=== PATIENT | male | born 1995 | race Caucasian/White ===

== ENCOUNTER 2021-04-17 12:19 | Emergency (ER) | payer MEDICAID ==
[2021-04-17 12:27] VITALS: BP 150/84
[2021-04-17] MEDS ORDERED: BUPIVACAINE 0.5% PF 10 ML VIAL SUBQ STA (12:42)
[2021-04-17] MEDS ORDERED: LIDOCAINE 1%-EPI 1:100000 20 ML MDV SUBQ STA (12:42)
--- NOTE | 2021-04-17 12:43 | ED Physician Documentation ---
PD HPI UPPER EXT INJURY - Stated complaint Stated Complaint: LT HAND LAC - Chief complaint Chief Complaint: Laceration - History obtained from History obtained from: Patient (Right-handed gentleman who is up-to-date on tetanus cut his left first webspace of his hand with a piece of slate rock that broke in his hand while helping a friend just prior to arrival.) Review of Systems Constitutional: reports: Reviewed and negative Eyes: reports: Reviewed and negative Ears: reports: Reviewed and negative Nose: reports: Reviewed and negative Throat: reports: Reviewed and negative Cardiac: reports: Reviewed and negative PD PAST MEDICAL HISTORY - Past Surgical History Past Surgical History: No - Present Medications Home Medications: Ambulatory Orders Medication Instructions Recorded Confirmed HYDROcod/ACETAM 5/325 [[place] 5/325] 1 - 2 tab PO Q6H PRN #10 tablet 04/17/21 - Allergies Allergies/Adverse Reactions: Allergies Allergy/AdvReac Type Severity Reaction Status Date / Time No Known Drug Allergies Allergy Verified 04/17/21 12:23 - Social History Does the pt smoke?: No Smoking Status: Never smoker Does the pt drink ETOH?: No Does the pt have substance abuse?: No - Immunizations Immunizations are current?: Yes - POLST Patient has POLST: No PD ED PE NORMAL - Vitals Vital signs reviewed: Yes - General General: Alert and oriented X 3, No acute distress - Extremities Extremities: Other (Is a 2 cm laceration deep in the webspace of the left hand with normal distal neurovascular function of the first and second digits. Tendon function will be assessed after anesthetic.) - Neuro Neuro: Alert and oriented X 3, Normal speech Results - Vitals Vitals: Vital Signs - 24 hr 04/17/21 12:24 Temperature 36.5 C Heart Rate 88 Respiratory 16 Rate Blood Pressure 150/84 H O2 Saturation 98 Oxygen O2 Source Room air Procedures - Laceration (location) L hand Length in cm: 3 Wound type: Linear, Into subcut fat Neurovascular status: Sensory intact, Motor intact, Vascular intact Tendon involvement: Tendon intact Anesthesia: Other (Both radial and median nerve a nerve blocks were done with a one-to-one mixture of 0.5% bupivacaine and 1% lidocaine with epinephrine with excellent anesthesia.) Wound preparation: Irrigated copiously NS, FB identified (small bits of slate rock), FB removed Skin layer closure: Nylon, Interrupted, Size #-0 - enter number (4-0), Sutures - enter # (6) Other: Patient tolerated well (Although he did get quite vagal during the procedure with nausea and sweatiness but did not syncopize), Tetanus UTD Departure - Departure Disposition: 01 Home, Self Care Clinical Impression: Laceration of left hand Qualifiers: Encounter type: initial encounter Foreign body presence: without foreign body Qualified Code(s): S61.412A - Laceration without foreign body of left hand, initial encounter Condition: Good Instructions: ED Laceration Hand Prescriptions: HYDROcod/ACETAM 5/325 [[place] 5/325] 1 - 2 tab PO Q6H PRN #10 tablet PRN Reason: Pain Comments: I sent your prescription electronically to [facility] in [place]. Come back for any signs of infection which would include: Redness, swelling, drainage, increased pain, or fevers. You can wash it soap and water. Keep it covered and moist with bacitracin ointment which is available over the counter; avoid neosporin. Follow-up with your physician in About 14 days for suture removal. I am prescribing a short course of narcotic pain medication for you. These are potentially dangerous and addictive medications that should be used carefully. These medications may constipate you. Take an uaka-jqa-sypegrl stool softener (docusate) twice daily with plenty of water while taking these medications. If you go 24 hours without a bowel movement, take [id number]-[id number] miralax, per package instructions. Do not drink or drive while taking these medications. If you received narcotic or sedating medications while in the emergency department, do not drive for 24 hours. Store this medication in a safe, secure place and out of reach of children. It is a violation of federal law to give or sell this medication to another person or to use in a manner other than prescribed. The ED will not refill narcotic prescriptions, including prescriptions lost or stolen. To dispose of unwanted medications: 1. [facility] [address] in [place] has a medication drop box. They accept prescription medications (in pill form) Saturday through Saturday 9:00 a.m. to 5:00 p.m. 2. The [facility] [employer] accepts prescription medications (in pill form only) for disposal year round. Call for more information. 3. Contact the [facility] for the next [facility] sponsored prescription drug collection event. , [phone], or [phone]; Note that many narcotic pain relievers also contain Tylenol/acetaminophen. Please ensure that your total dose of acetaminophen from all sources does not exceed 3 g (3000 mg) per day.
== END 2021-04-17 13:31 | disposition home or self-care (01) ==
LOC: ED 12:19
DX: S61.412A Laceration without foreign body of left hand, initial encounter (principal); W26.8XXA Contact with other sharp object(s), not elsewhere classified, initial encounter
CPT/HCPCS: 12002; 99282; 99283

== ENCOUNTER 2021-05-01 17:57 | Emergency (ER) | payer MEDICAID ==
--- NOTE | 2021-05-01 19:30 | ED Physician Documentation ---
PD HPI WOUND RECHECK - Stated complaint Stated Complaint: LEFT HAND INJURY - Chief complaint Chief Complaint: Laceration - Histroy obtained from History obtained from: Patient - History of Present Illness Pain level max: 0 Pain level now: 0 Associated symptoms: No: Fever, Redness, Swelling, Drainage - Additional information Additional information: 25-year-old male presents to the emergency department stating that he needs a wound check of the left hand. He states that he received stitches 2 weeks ago. He took the stitches out on his own tonight. He states that he wanted to make sure the wound was healed okay. No bleeding. No drainage. No redness. No swelling. Review of Systems Constitutional: denies: Fever, Chills GI: denies: Vomiting, Diarrhea Skin: denies: Rash Musculoskeletal: denies: Neck pain, Back pain Neurologic: denies: Headache PD PAST MEDICAL HISTORY - Past Medical History Past Medical History: Yes - Past Surgical History Past Surgical History: No - Present Medications Home Medications: Ambulatory Orders Medication Instructions Recorded Confirmed Desipramine HCl [Norpramin] 25 mg PO DAILY 05/01/21 05/01/21 hydrOXYzine HCL [Hydroxyzine HCl] 25 mg PO DAILY 05/01/21 05/01/21 - Allergies Allergies/Adverse Reactions: Allergies Allergy/AdvReac Type Severity Reaction Status Date / Time No Known Drug Allergies Allergy Verified 05/01/21 18:10 - Social History Does the pt smoke?: No Smoking Status: Never smoker Does the pt drink ETOH?: No Does the pt have substance abuse?: No - Immunizations Immunizations are current?: Yes - POLST Patient has POLST: No PD ED PE NORMAL - Vitals Vital signs reviewed: Yes - General General: Alert and oriented X 3, No acute distress, Well developed/nourished - Derm Derm: Warm and dry - Extremities Extremities: Other (Well-healed laceration near the base of the left thumb. No drainage. No dehiscence. No redness or swelling.) - Neuro Neuro: Alert and oriented X 3 - Psych Psych: Normal mood, Normal affect Results - Vitals Vitals: Vital Signs - 24 hr 05/01/21 05/01/21 18:05 19:40 Temperature 37.3 C 37.1 C Heart Rate 87 82 Respiratory 16 16 Rate Blood Pressure 150/78 H 144/70 H O2 Saturation 100 100 Oxygen O2 Source Room air PD MEDICAL DECISION MAKING - ED course Complexity details: considered differential, d/w patient ED course: Patient with what appears to be a well-healing laceration. No indication for further care at this time. Warnings of infection and instructions on wound care given at bedside. Also counseled on how to minimize scarring. patient counseled regarding signs and symptoms for which I believe and urgent re- evaluation would be necessary. Patient with good understanding of and agreement to plan and is comfortable going home at this time This document was made in part using voice recognition software. While efforts are made to proofread this document, sound alike and grammatical errors may occur. Departure - Departure Disposition: 01 Home, Self Care Clinical Impression: Visit for wound check Condition: Good Instructions: ED Stap Removal No Complication Follow-Up: SWAPNIL ADEN [Primary Care Provider] - Comments: Follow-up with your doctor as needed for further care. Keep the wound clean. Return if you notice redness, swelling or drainage from the wound. Discharge Date/Time: 05/01/21 19:40
[2021-05-01 19:41] VITALS: BP 144/70
== END 2021-05-01 19:40 | disposition home or self-care (01) ==
LOC: ED 17:57
DX: S61.412D Laceration without foreign body of left hand, subsequent encounter (principal); X58.XXXD Exposure to other specified factors, subsequent encounter
CPT/HCPCS: 99281

== ENCOUNTER 2022-04-10 08:19 | Emergency (ER) | payer MEDICAID ==
--- NOTE | 2022-04-10 08:43 | ED Physician Documentation ---
PD HPI NVD - Stated complaint Stated Complaint: NAUSEA,ABD PX - Chief complaint Chief Complaint: Abd Pain - History obtained from History obtained from: Patient - History of Present Illness Timing - onset: Enter time (399), Today Timing - duration: Hours Timing - details: Abrupt onset, Still present Associated symptoms: Abdominal pain, Other (intractable vomiting) Contributing factors: Recent antibiotics, Other (recent treatment for pneumonia) Improved by: Vomiting Similar symptoms before: Has not had sx before Recently seen: Emergency Dept - Additonal information Additional information: Florentino Rodriguez is a 26-year-old male who was recently been treated for pneumonia through [facility] in [place] with doxycycline. He notes that at 4 AM he developed the onset of abdominal pain nausea and vomiting. He has been vomiting all night and has not been able to hold anything down. He indicates that he is taken 8mg of Zofran without improvement in his nausea. He does admit to use of cannabis and extra cannabis since he has been sick with pneumonia. He denies getting into a warm bath for relief. He has not had this happen to him previously. Review of Systems Constitutional: denies: Fever Ears: denies: Ear pain Nose: reports: Congestion Throat: denies: Sore throat Cardiac: denies: Chest pain / pressure, Palpitations Respiratory: reports: Cough GI: reports: Abdominal Pain, Nausea, Vomiting : denies: Dysuria, Frequency Skin: denies: Rash Musculoskeletal: denies: Neck pain, Back pain, Extremity pain Neurologic: denies: Generalized weakness, Focal weakness, Numbness PD PAST MEDICAL HISTORY - Past Surgical History Past Surgical History: No - Present Medications Home Medications: Ambulatory Orders Medication Instructions Recorded Confirmed Desipramine HCl [Norpramin] 25 mg PO HS 05/01/21 04/10/22 hydrOXYzine HCL [Hydroxyzine HCl] 25 mg PO Q8HR PRN 05/01/21 04/10/22 Doxycycline [Vibramycin] 100 mg PO BID 04/10/22 04/10/22 Ondansetron Odt [Zofran Odt] 4 mg TL Q6H PRN 04/10/22 04/10/22 Prochlorperazine Maleate 10 mg PO Q4HR PRN #12 tab 04/10/22 [Compazine] Sucralfate [Carafate] 1 gm PO ACHS #60 tablet 04/10/22 - Allergies Allergies/Adverse Reactions: Allergies Allergy/AdvReac Type Severity Reaction Status Date / Time No Known Drug Allergies Allergy Verified 04/10/22 08:28 - Social History Does the pt smoke?: No Smoking Status: Never smoker Does the pt drink ETOH?: No Does the pt have substance abuse?: No - Immunizations Immunizations are current?: Yes - POLST Patient has POLST: No PD ED PE NORMAL - Vitals Vital signs reviewed: Yes (hypertensive ) - General General: Alert and oriented X 3, Well developed/nourished, Other (appears nauseated) - HEENT HEENT: Atraumatic, PERRL, EOMI - Neck Neck: Supple, no meningeal sign, No bony TTP - Cardiac Cardiac: RRR, No murmur - Respiratory Respiratory: No respiratory distress, Clear bilaterally - Abdomen Abdomen: Normal bowel sounds, Soft, Non tender, Non distended, No organomegaly - Back Back: No CVA TTP, No spinal TTP - Derm Derm: Normal color, Warm and dry, No rash - Extremities Extremities: No deformity, No edema - Neuro Neuro: Alert and oriented X 3, 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, No motor deficit, No sensory deficit, Normal speech Eye Opening: Spontaneous Motor: Obeys Commands Verbal: Oriented GCS Score: 15 - Psych Psych: Normal mood, Normal affect Results - Vitals Vitals: Vital Signs - 24 hr 04/10/22 04/10/22 04/10/22 08:28 08:31 10:35 Temperature 36.7 C Heart Rate 50 L 47 L 67 Respiratory 18 18 12 Rate Blood Pressure 159/99 H 128/84 H 94/69 O2 Saturation 100 100 97 Oxygen O2 Source Room air - Labs Labs: Laboratory Tests 04/10/22 04/10/22 04/10/22 08:26 08:26 08:52 WBC 8.9 RBC 5.77 Hgb 16.3 Hct 50.5 MCV 87.5 MCH 28.2 MCHC 32.3 RDW 13.2 Plt Count 262 MPV 9.9 Neut # (Auto) 6.2 Lymph # (Auto) 1.6 [place] # (Auto) 0.6 Eos # (Auto) 0.4 Baso # (Auto) 0.1 Absolute Nucleated RBC 0.00 Nucleated RBC % 0.0 Sodium 142 Potassium 4.4 Chloride 102 Carbon Dioxide 29 Anion Gap 11.0 BUN 14 Creatinine 0.9 Estimated GFR (MDRD) 103 Glucose 113 H Calcium 10.3 Total Bilirubin 0.6 AST 17 ALT 16 Alkaline Phosphatase 82 Total Protein 8.7 H Albumin 4.7 Globulin 4.0 Albumin/Globulin Ratio 1.2 Lipase 49 Urine Color DARK YELLOW Urine Clarity CLEAR Urine pH 6.5 Ur Specific [place] 1.025 Urine Protein NEGATIVE Urine Glucose (UA) NEGATIVE Urine Ketones NEGATIVE Urine Occult Blood NEGATIVE Urine Nitrite NEGATIVE Urine Bilirubin NEGATIVE Urine Urobilinogen 0.2 (NORMAL) Ur Leukocyte Esterase NEGATIVE Ur Microscopic Review NOT INDICATED Urine Culture Comments NOT INDICATED PD Medical Decision Making - ED course Complexity details: reviewed results, re-evaluated patient, considered differential, d/w patient, d/w family ED course: 26-year-old Florentino Stone has been treated for pneumonia with doxycycline and has now developed nausea and vomiting. He has uncontrolled vomiting and abdominal pain. His examination is remarkable for lack of tenderness and significant pain. He has not responded to the typical agents for nausea. He did have some response to the GI cocktail given with viscous lidocaine Mylanta and Carafate and this was transient. We did provide Inapsine and Benadryl as an antidote for cannabis hyperemesis. The patient responded entirely with resolution of his pain and his nausea. I discussed this entity with the patient at length and recommended he decrease or eliminate his use of cannabis. I did indicate that this is likely to come back if he continues and if it does happen again I recommended he come to see us for antidote. The pharmacy called and sucralfate is not currently available. I called the patient back and he states that he is able to get food down and he is not having issues with pain in his stomach. I encouraged discontinuation of the sucralfate. Departure - Departure Disposition: 01 Home, Self Care Clinical Impression: Gastroenteritis Condition: Stable Instructions: ED Nausea Vomiting Follow-Up: SWAPNIL ADEN [Primary Care Provider] - Prescriptions: Prochlorperazine Maleate [Compazine] 10 mg PO Q4HR PRN #12 tab PRN Reason: Nausea / Vomiting Sucralfate [Carafate] 1 gm PO ACHS #60 tablet Comments: Florentino, today it looks like the lining of your stomach may be irritated and I have E scribed some Carafate to help heal this up. The recommendation is to take an acid reducing medication such as the abnormal omeprazole for about 2 weeks. The Carafate is to be taken half an hour before eating and at bedtime. I have also E scribe some Compazine which I recommend taking with Benadryl for nausea. Your nausea vomiting and abdominal pain are suspicious for the potential of cannabis hyperemesis. This can recur and if you are unable to control the vomiting follow-up with us and we will give you an antidote. Otherwise recommendation is to reduce or eliminate your use of cannabis altogether. Discharge Date/Time: 04/10/22 11:11
[2022-04-10 08:52] LABS: BASOPHILS # (AUTO) 0.1 10^3/uL (0.0-0.1); BASOPHILS % (AUTO) 0.6 %; EOSINOPHILS # (AUTO) 0.4 10^3/uL (0.0-0.7); HCT - HEMATOCRIT 50.5 % (42.0-52.0); HGB - HEMOGLOBIN 16.3 g/dL (14.0-18.0); LYMPHOCYTES # (AUTO) 1.6 10^3/uL (1.5-3.5); LYMPHOCYTES % (AUTO) 17.8 %; MEAN CORPUSCULAR HEMOGLOBIN 28.2 pg (27.0-31.0); MEAN CORPUSCULAR HGB CONC 32.3 g/dL (32.0-36.0); MEAN CORPUSCULAR VOLUME 87.5 fL (80.0-94.0); MEAN PLATELET VOLUME 9.9 fL (7.4-11.4); MONOCYTES # (AUTO) 0.6 10^3/uL (0.0-1.0); MONOCYTES % (AUTO) 6.4 %; NEUTROPHILS # (AUTO) 6.2 10^3/uL (1.5-6.6); PLT - PLATELET COUNT 262 10^3/uL (130-450); RED BLOOD COUNT 5.77 10^6/uL (4.70-6.10); RED CELL DISTRIBUTION WIDTH 13.2 % (12.0-15.0); WHITE BLOOD COUNT 8.9 x10^3/uL (4.8-10.8)
[2022-04-10] MEDS ORDERED: SODIUM CHLORIDE 0.9% 1,000 ML IV STA (08:52)
[2022-04-10] MEDS ORDERED: MAG HYDROX/AL HYDROX/SIMETH 30 ML UDC PO STA (08:52)
[2022-04-10] MEDS ORDERED: LIDOCAINE VISCOUS 2% 15 ML UDC MM STA (08:52)
[2022-04-10] MEDS ORDERED: SUCRALFATE 1 GM/10 ML UDC PO STA (08:52)
[2022-04-10] MEDS ORDERED: ONDANSETRON 4 MG/2 ML VIAL IVP STA (08:52)
[2022-04-10 09:04] LABS: ALBUMIN 4.7 g/dL (3.2-5.5); ALBUMIN/GLOBULIN RATIO 1.2 (1.0-2.2); BILIRUBIN,TOTAL 0.6 mg/dL (0.2-1.0); CALCIUM 10.3 mg/dL (8.5-10.3); CREATININE 0.9 mg/dL (0.6-1.2); POTASSIUM 4.4 mmol/L (3.5-5.0); TOTAL PROTEIN 8.7 g/dL (6.7-8.2)
[2022-04-10 09:06] LABS: BILIRUBIN,URINE NEGATIVE (NEGATIVE); GLUCOSE, URINE (UA) NEGATIVE (NEGATIVE); KETONES,URINE (UA) NEGATIVE (NEGATIVE); LEUKOCYTE ESTERASE, URINE NEGATIVE (NEGATIVE); NITRITE,URINE NEGATIVE (NEGATIVE); OCCULT BLOOD,URINE NEGATIVE (NEGATIVE); PH,URINE 6.5 PH (5.0-7.5); PROTEIN,URINE NEGATIVE (NEGATIVE); UROBILINOGEN,URINE 0.2 (NORMAL) E.U./dL (NORMAL)
[2022-04-10 09:07] LABS: CLARITY,URINE CLEAR (CLEAR)
[2022-04-10] MEDS ORDERED: DROPERIDOL 5 MG/2 ML VIAL IVP STA (09:14)
[2022-04-10] MEDS ORDERED: diphenhydrAMINE INJ 50 MG/ML VIAL IVP STA (09:15)
[2022-04-10 10:36] VITALS: BP 94/69
== END 2022-04-10 11:11 | disposition home or self-care (01) ==
LOC: ED 08:19
DX: K52.9 Noninfective gastroenteritis and colitis, unspecified (principal); Z79.899 Other long term (current) drug therapy
CPT/HCPCS: 36415; 80053; 81003; 83690; 85025; 96374; 96375; 99283; 99284; A9270; J1200; 81001; 87086

== ENCOUNTER 2022-06-18 18:37 | Outpatient (CLI) | payer OTHER, MEDICAID | END 2022-06-18 18:38 | disposition EMS.NT | LOC: EMS 18:37 | DX: R07.1 Chest pain on breathing (principal) ==

== ENCOUNTER 2022-06-18 19:40 | Emergency (ER) | payer MEDICAID ==
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
[2022-06-18] MEDS: MORPHINE 2 MG/ML CARPUJECT IVP STA (21:26)
[2022-06-18 21:44] LABS: CALCIUM 9.2 mg/dL (8.5-10.3); CREATININE 0.9 mg/dL (0.6-1.2); POTASSIUM 4.3 mmol/L (3.5-5.0)
[2022-06-18] MEDS ORDERED: iohexoL-300 100 ML VIAL ONE (21:50)
[2022-06-18] MEDS: iohexoL-300 100 ML VIAL IVP ONE (22:11)
--- NOTE | 2022-06-18 22:16 | XRAY Report ---
PROCEDURE: Chest 1 View X-Ray INDICATIONS: chest pain TECHNIQUE: One view of the chest was acquired. COMPARISON: None. FINDINGS: Surgical changes and devices: None. Lungs and pleura: No pleural effusions or pneumothorax. Lungs are clear. Mediastinum: Mediastinal contours appear normal. Heart size is normal. Bones and chest wall: No displaced fracture identified. No suspicious bony lesions. Overlying soft tissues appear unremarkable. IMPRESSION: 1. No acute cardiopulmonary disease. Reviewed by: Celso Denny MD on 06/18/2022 10:15 PM PDT Approved by: Celso Denny MD on 06/18/2022 10:15 PM PDT Station ID: [id number]
[2022-06-18] MEDS: ONDANSETRON 4 MG/2 ML VIAL IVP STA (22:54)
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
[2022-06-18 23:59] VITALS: BP 153/117
[2022-06-19] MEDS ORDERED: HYDROcod/ACET 5/325 Prepack 4 PO STA (00:05)
== END 2022-06-19 00:43 | disposition home or self-care (01) ==
LOC: ED 19:40
DX: S20.212A Contusion of left front wall of thorax, initial encounter (principal); V43.52XA Car driver injured in collision with other type car in traffic accident, initial encounter; Y92.410 Unspecified street and highway as the place of occurrence of the external cause
CPT/HCPCS: 36415; 71045; 74177; 80048; 96374; 96375; 99284; Q9967

== ENCOUNTER 2022-07-25 18:47 | Emergency (ER) | payer MEDICAID ==
--- NOTE | 2022-07-25 19:07 | ED Physician Documentation ---
History of Present Illness - Stated complaint Stated Complaint: RT HAND SWOLLEN/PX - Chief complaint Chief Complaint: Trauma Ext - Additonal information Additional information: 27-year-old male presents emergency department for evaluation of 3 days right hand pain sustained when working out using a punching bag. He has pain at the MCP joint of the distal fifth metacarpal. He has a remote history of fracture in this hand about 10 years ago. He is right-hand dominant Review of Systems Musculoskeletal: reports: Extremity pain PD PAST MEDICAL HISTORY - Past Medical History Past Medical History: Yes Cardiovascular: None Respiratory: None Neuro: None Endocrine/Autoimmune: None GI: None : None HEENT: None Psych: Anxiety Musculoskeletal: None Derm: None Other Past Medical History: lymphedema - Past Surgical History Past Surgical History: No - Present Medications Home Medications: Ambulatory Orders Medication Instructions Recorded Confirmed Desipramine HCl [Norpramin] 25 mg PO HS 05/01/21 04/10/22 hydrOXYzine HCL [Hydroxyzine HCl] 25 mg PO Q8HR PRN 05/01/21 04/10/22 Ondansetron Odt [Zofran Odt] 4 mg TL Q6H PRN #10 tablet 06/19/22 Fluticasone 110 Mcg [Flovent] 07/25/22 07/25/22 Fluticasone Propionate 07/25/22 [Fluticasone Propionate Hfa] - Allergies Allergies/Adverse Reactions: Allergies Allergy/AdvReac Type Severity Reaction Status Date / Time No Known Drug Allergies Allergy Verified 07/25/22 18:52 - Social History Does the pt smoke?: No Smoking Status: Never smoker Does the pt drink ETOH?: No Does the pt have substance abuse?: No Substance Use and Type: Marijuana - Immunizations Immunizations are current?: Yes - POLST Patient has POLST: No PD ED PE EXPANDED - Extremities Extremities: Right hand (Swelling and tenderness on the dorsum of the right hand mostly over the distal fifth metacarpal at the MCP. Neurovascularly intact. No anatomic snuffbox tenderness. No obvious deformity. Mild swelling noted in this region) Results - Vitals Vitals: Vital Signs - 24 hr 07/25/22 18:50 Temperature 36.7 C Heart Rate 83 Respiratory 16 Rate Blood Pressure 141/76 H O2 Saturation 100 Oxygen O2 Source Room air - Rads (name of study) hand xr Relevant Findings:: Final report received (Suggestion of a nondisplaced fracture at the base of the fifth metacarpal) PD Medical Decision Making - ED course Complexity details: d/w patient ED course: 27-year-old male presents emergency department for evaluation of acute right hand pain sustained 3 days ago when working out using a punching bag. He has pain along the shaft of the fifth metacarpal he was most dominant on my exam near the MCP joint though the x-ray indicates that he has a fracture that is nondisplaced at the base of this bone. Patient was placed in a ulnar gutter splint. He has preserved CMST post splinting. His pain is well controlled I will recommend Tylenol and ibuprofen [id number]. He is to follow closely with PCP for referral to orthopedics. The usual emergent return precautions worsening symptoms was discussed Departure - Departure Disposition: 01 Home, Self Care Clinical Impression: Closed fracture of 5th metacarpal Qualifiers: Encounter type: initial encounter Metacarpal location: base Fracture alignment: nondisplaced Laterality: right Qualified Code(s): S62.346A - Nondisplaced fracture of base of fifth metacarpal bone, right hand, initial encounter for closed fracture Condition: Stable Record reviewed to determine appropriate education?: Yes Instructions: ED Cast Care Fiberglass, ED Fx Hand Closed Comments: The x-ray shows a nondisplaced fracture at the base of your fifth metacarpal bone. We have placed you in an ulnar gutter splint. This is a temporary splint to be worn until you are seen by an orthopedics doctor. I do not anticipate that this fracture will require surgery. Typically immobilization for several weeks is sufficient until enough bone healing has occurred to allow you to wear temporary splints. You can continue to take the Tylenol and ibuprofen [id number] for discomfort. Call your primary care doctor tomorrow to discuss this ED visit or go to any local walk-in clinic to obtain the appropriate referral to orthopedics
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
[2022-07-25] MEDS ORDERED: IBUPROFEN 600 MG TABLET PO STA (20:45)
[2022-07-25 21:08] VITALS: BP 136/60
== END 2022-07-25 21:12 | disposition home or self-care (01) ==
LOC: ED 18:47
DX: S62.346A Nondisplaced fracture of base of fifth metacarpal bone, right hand, initial encounter for closed fracture (principal); X58.XXXA Exposure to other specified factors, initial encounter; Y93.A1 Activity, exercise machines primarily for cardiorespiratory conditioning
CPT/HCPCS: 73130; 99283; A9270

== ENCOUNTER 2023-07-08 14:05 | Emergency (ER) | payer SELFPAY ==
[2023-07-08 14:25] VITALS: BP 147/64; O2SAT 99
[2023-07-08] MEDS: PROPARACAINE 0.5% OPHTH DROPS 15 ML EACHEYE STA (14:37)
--- NOTE | 2023-07-08 14:56 | ED Physician Documentation ---
PD HPI OPHTHO - Stated complaint Stated Complaint: RT EYE PX - Chief complaint Chief Complaint: Heent - History obtained from History obtained from: Patient - History of Present Illness Timing - onset: Today Timing - duration: Hours (1) Timing - details: Abrupt onset Pain level max: 6 Pain level now: 6 Location: Right Associated symptoms: Redness, Tearing, Photophobia Contributing factors: Blunt trauma. No: Chemical exposure, acid, Chemical exposure, base, Wears glasses, Wears contacts - Additional information Additional information: 22-year-old male was using a drill today when the bed accidentally hit him in the right eye. This occurred about an hour prior to arrival. Does not wear contacts or glasses. PD PAST MEDICAL HISTORY - Past Medical History Past Medical History: Yes Cardiovascular: None Respiratory: None Neuro: None Endocrine/Autoimmune: None GI: None : None HEENT: None Psych: Anxiety, Post traumatic stress disorder Musculoskeletal: None Derm: None - Past Surgical History Past Surgical History: No - Present Medications Home Medications: Ambulatory Orders Medication Instructions Recorded Confirmed Desipramine HCl [Norpramin] 25 mg PO HS 05/01/21 04/10/22 hydrOXYzine HCL [Hydroxyzine HCl] 25 mg PO Q8HR PRN 05/01/21 04/10/22 Ondansetron Odt [Zofran Odt] 4 mg TL Q6H PRN #10 tablet 06/19/22 Fluticasone 110 Mcg [Flovent] 07/25/22 07/25/22 Fluticasone Propionate 07/25/22 [Fluticasone Propionate Hfa] Polymyxin B/Trimeth Ophth Drop 1 drops RIGHTEYE Q3H 7 Days #1 each 07/08/23 [Polytrim Ophth Drops] - Allergies Allergies/Adverse Reactions: Allergies Allergy/AdvReac Type Severity Reaction Status Date / Time No Known Drug Allergies Allergy Verified 07/08/23 14:13 - Social History Does the pt smoke?: No Smoking Status: Never smoker Does the pt drink ETOH?: No Does the pt have substance abuse?: No - Immunizations Immunizations are current?: Yes - POLST Patient has POLST: No PD ED PE NORMAL - Vitals Vital signs reviewed: Yes - General General: Alert and oriented X 3, No acute distress - HEENT HEENT: Moist mucous membranes, Other (Left eye is normal. Right eye has tearing and conjunctival injection. Fluorescein uptake in the superomedial quadrant of the cornea. Negative Jackson sign. No foreign body) - Derm Derm: Warm and dry Results - Vitals Vitals: Vital Signs - 24 hr 07/08/23 14:13 Temperature 36.8 C Heart Rate 77 Respiratory 18 Rate Blood Pressure 147/64 H O2 Saturation 99 Oxygen O2 Source Room air PD Medical Decision Making - ED course Complexity details: considered differential, d/w patient ED course: 28-year-old male with a left eye corneal abrasion. Fluorescein uptake was visualized after proparacaine was instilled into the eye. With the addition of proparacaine, symptoms resolved. We will place him on ophthalmic antibiotics for home. Tetanus up-to-date. No evidence of globe rupture or foreign body. Patient counseled regarding signs and symptoms for which I believe and urgent re-evaluation would be necessary. Patient with good understanding of and agreement to plan and is comfortable going home at this time This document was made in part using voice recognition software. While efforts are made to proofread this document, sound alike and grammatical errors may occur. Departure - Departure Disposition: 01 Home, Self Care Clinical Impression: Corneal abrasion Qualifiers: Encounter type: initial encounter Laterality: right Qualified Code(s): S05.01XA - Injury of conjunctiva and corneal abrasion without foreign body, right eye, initial encounter Condition: Good Instructions: ED Eye Injury Corneal Abrasion Follow-Up: SWAPNIL ADEN [Primary Care Provider] - Prescriptions: Polymyxin B/Trimeth Ophth Drop [Polytrim Ophth Drops] 1 drops RIGHTEYE Q3H 7 Days #1 each Comments: Your prescription was sent to [facility] in [place]. Please use the drops as prescribed. Please follow-up with your doctor as needed for further care. Artificial tears and artificial gel tears will help to soothe the area as well. Putting these in the refrigerator so they are cold can help provide pain relief. You can use Motrin or Tylenol as needed for pain. Please return if you worsen. Forms: PCP List Discharge Date/Time: 07/08/23 15:00
== END 2023-07-08 15:00 | disposition home or self-care (01) ==
LOC: ED 14:05
DX: S05.01XA Injury of conjunctiva and corneal abrasion without foreign body, right eye, initial encounter (principal); W22.8XXA Striking against or struck by other objects, initial encounter
CPT/HCPCS: 99284; J3490